=== PATIENT | male | born 1930 | race Caucasian/White ===

== ENCOUNTER → 2016-12-23 | Outpatient (CLI) | payer BC ==
[~2016-12-23] MED LIST: AMLO-114 PO; CHOL100010 PO; CIPR-255 PO; PANT40TA PO; POLY1SOL6 OPB; PRED1SUS3 OPB
[2016-12-23 12:54] LABS: BLOOD UREA NITROGEN 21 mg/dl (7-18); CREATININE 0.91 mg/dl (0.60-1.40)
== END | disposition home or self-care (01) ==
LOC: C.LAB 11:47
PROVIDERS: ATTEND Urology
DX: C67.9 Malignant neoplasm of bladder, unspecified (principal); D49.4 Neoplasm of unspecified behavior of bladder

== ENCOUNTER → 2017-01-05 | Outpatient (CLI) | payer BC ==
--- NOTE | 2017-01-05 14:06 | DIAGNOSTIC IMAGING REPORT ---
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 The patient was injected with 50 cc of Optiray 320. After 5 minute delay, the patient was rescanned in a dynamic helical fashion during intravenous administration of additional 44 cc Optiray 320. A dose lowering technique was utilized adhering to the principles of ALARA. CT DOSE: 1573.46 mGycm FINDINGS: Lower chest: The heart is normal in size and configuration, without pericardial effusion. The lung bases and pleural spaces are clear. Liver: There is a 31 mm left lobe hepatic cyst. There is a 20 mm right lobe hepatic cyst. Additional tiny hepatic cysts are evident. Gallbladder: Cholelithiasis. No gallbladder wall thickening. Spleen: Normal in size and attenuation. Pancreas: Unremarkable. Adrenal glands: Unremarkable. Kidneys: There are 2 tangential mid pole right renal hypodensities each of which measures approximately 8 mm. These likely represent cysts. There is no hydronephrosis. No collecting system or ureteral filling defects are visualized. Bowel: There is extensive colonic diverticulosis. There are no acute peridiverticular inflammatory changes. Peritoneum: There is no intraperitoneal free air or abdominal ascites. Vasculature: The abdominal aorta is normal in course and caliber. Adenopathy: There is an enlarging 13 mm hypodensity in the left posterior para-aortic region. This approaches water attenuation and could represent a cyst or necrotic lymph node. Pelvic viscera: There are multiple bladder diverticula present. The prostate is enlarged measuring 52 mm. There is an enlarging 27 mm hypodense lesion in the left inguinal region. This could represent a cyst or necrotic lymph node. There is a 19 mm soft tissue nodule within the right inguinal canal. Skeletal structures: No destructive osseous lesions are seen. IMPRESSION: 1. No renal, ureteral, or bladder calculi identified 2. No uroepithelial lesions identified 3. Bladder diverticula 4. Nonspecific 19 mm soft tissue nodule within the right inguinal canal 5. Hypodense possibly cystic lesions within the left para-aortic region measuring 13 mm, and left inguinal region measuring 27 mm. These could represent cysts or necrotic lymph nodes 6. Enlarged inhomogeneous prostate 7. Cholelithiasis Electronically signed by: Nabeel Galindo M.D. 01/05/2017 2:05 PM Dictated Date/Time: 01/05/2017 1:53 PM
== END | disposition home or self-care (01) ==
LOC: C.CTS 13:03
PROVIDERS: ATTEND Urology
DX: C67.9 Malignant neoplasm of bladder, unspecified (principal); D49.4 Neoplasm of unspecified behavior of bladder; N30.90 Cystitis, unspecified without hematuria; N32.9 Bladder disorder, unspecified; N40.0 Benign prostatic hyperplasia without lower urinary tract symptoms; K80.20 Calculus of gallbladder without cholecystitis without obstruction